=== PATIENT | male | born 1985 | race Caucasian/White ===

== ENCOUNTER 2016-08-25 19:21 | Emergency (ER) | payer BC ==
[~2016-08-25] VITALS: Ht 177.8 cm; Wt 94.9 kg
[2016-08-25] MEDS ORDERED: NORCO 5/3251 TABLET PO (19:54)
[2016-08-25] MEDS ORDERED: PEN-VEE K,VEET500 MG PO (19:54)
[2016-08-25 20:03] VITALS: BP 148/92
== END 2016-08-25 20:02 | disposition home or self-care (01) ==
LOC: EME 19:21
DX: T40.4X5A Adverse effect of other synthetic narcotics, initial encounter (principal); K08.89 Other specified disorders of teeth and supporting structures
CPT/HCPCS: 99281; 99283